=== PATIENT | male | born 1990 | race Caucasian/White ===

== ENCOUNTER 2021-06-17 21:49 | Observation (INO) | payer OTHER ==
[~2021-06-17] VITALS: Ht 167.6 cm; Wt 74.6 kg
[2021-06-18] MEDS ORDERED: NORCO, ANEXSIA 5/325MG TABLET (HYDROcodone/ACETAMINOPHEN) PO ONE (02:20)
[2021-06-18] MEDS ORDERED: MAALOX 30 ML SUSP *UDC PO PRN (02:30)
[2021-06-18] MEDS ORDERED: MOM 30ML SUSPENSION UDC PO PRN (02:30)
[2021-06-18] MEDS ORDERED: ACETAMINOPHEN TAB 650MG DOSE (2X325MG) PO PRN (02:30)
[2021-06-18] MEDS: NS 1,000 ML IV SCH ×3 (02:30→13:08)
[2021-06-18 02:46] LABS: BASO # 0.1 10^3/uL (0.0-0.2); BASO % 1.3 % (0.0-1.0); EOS # 0.1 10^3/uL (0.0-0.5); EOS % 1.5 % (0.0-3.0); HEMATOCRIT 43.7 % (42.0-52.0); HEMOGLOBIN 14.9 g/dl (13.5-17.5); LYMPH # 2.5 10^3/uL (1.5-5.0); LYMPH % 32.3 % (24.0-44.0); MEAN CORPUSCULAR HEMOGLOBIN 31.5 pg (27.0-33.0); MEAN CORPUSCULAR HGB CONC 34.1 g/dl (32.0-36.5); MEAN CORPUSCULAR VOLUME 92.4 fl (80.0-96.0); MONO % 12.9 % (2.0-8.0); PLATELET COUNT, AUTOMATED 244 10^3/uL (150-450); RED BLOOD COUNT 4.73 10^6/uL (4.30-6.10); WHITE BLOOD COUNT 7.8 10^3/uL (4.0-10.0)
[2021-06-18] MEDS ORDERED: HOME MED LIST COMPLETE! XX SCH (02:50)
[2021-06-18] MEDS ORDERED: ceFAZolin SOD 2 GM in IV 1 EA IV ONE (03:00)
[2021-06-18 03:01] LABS: BLOOD UREA NITROGEN 15 MG/DL (7-18); CALCIUM LEVEL 9.4 MG/DL (8.5-10.1); CARBON DIOXIDE LEVEL 28 MEQ/L (21-32); CHLORIDE LEVEL 106 MEQ/L (98-107); CREATININE FOR GFR 1.26 MG/DL (0.70-1.30); GLOMERULAR FILTRATION RATE > 60.0 (>60); GLUCOSE, FASTING 109 MG/DL (70-100); MAGNESIUM LEVEL 2.1 MG/DL (1.8-2.4); POTASSIUM SERUM 4.1 MEQ/L (3.5-5.1); SODIUM LEVEL 142 MEQ/L (136-145)
[2021-06-18 03:31] LABS: RSV AMPLIFICATION NEGATIVE (NEGATIVE)
[2021-06-18] MEDS: oxyCODONE 5MG TAB PO PRN ×2 (04:46→19:40)
[2021-06-18 05:15] VITALS: BP 109/74
[2021-06-18] MEDS ORDERED: KETOROLAC 30 MG/ML 1ML VIAL IV ONE (10:15)
[2021-06-18] MEDS: ceFAZolin SOD 1 GM in D5W MINI-BAG PLUS 50 ML IV SCH ×2 (11:51→19:39)
[2021-06-18 14:00] VITALS: BP 111/82
[2021-06-18] MEDS ORDERED: propofoL 200 MG/20 ML VIAL As Ordered ONE ×2 (15:55→16:22)
[2021-06-18] MEDS ORDERED: MIDAZOLAM INJ 2MG/2ML VIAL (J2250 PER 1MG) As Ordered ONE (15:55)
[2021-06-18] MEDS ORDERED: fentaNYL 100 MCG/2 ML INJECTION As Ordered ONE (15:55)
[2021-06-18] MEDS ORDERED: LIDOCAINE 1% MDV 20ML VIAL As Ordered ONE (16:07)
[2021-06-18] MEDS ORDERED: ceFAZolin 2 GM/D5W 50 ML IV BAG (J0690 PER 500MG) As Ordered ONE (16:07)
[2021-06-18] MEDS ORDERED: BUPIVACAINE HCL 0.5% 10ML VIAL As Ordered ONE (16:07)
[2021-06-18] MEDS ORDERED: LR 1,000 ML IV SCH (17:35)
[2021-06-18] MEDS ORDERED: oxyCODONE 5MG TAB PO PRN (17:35)
[2021-06-18] MEDS ORDERED: fentaNYL 100 MCG/2 ML INJECTION IV PRN (17:35)
[2021-06-18] MEDS ORDERED: ONDANSETRON 4MG/2ML VIAL IV PRN (17:35)
[2021-06-18 18:00] VITALS: BP 109/64
[2021-06-18 18:30] VITALS: BP 112/66
[2021-06-18 20:30] VITALS: BP 113/59
[2021-06-18 21:30] VITALS: BP 102/61
[2021-06-18] MEDS: MORPHINE 4 MG/ML 1ML VIAL/SYRINGE (J2270) IV PRN (23:42)
[2021-06-19 02:00] VITALS: BP 112/67
[2021-06-19] MEDS: ceFAZolin SOD 1 GM in D5W MINI-BAG PLUS 50 ML IV SCH (03:42)
[2021-06-19] MEDS: oxyCODONE 5MG TAB PO PRN ×2 (03:43→07:53)
[2021-06-19 06:00] VITALS: BP 123/76
[2021-06-19] MEDS: MORPHINE 4 MG/ML 1ML VIAL/SYRINGE (J2270) IV PRN (06:36)
[2021-06-19] MEDS ORDERED: OXYC1TAB23 PO ×2 (07:29→09:02)
[2021-06-19] MEDS ORDERED: CEPH500C PO (09:05)
[2021-06-19] MEDS ORDERED: BACITAB PO (09:05)
== END 2021-06-19 09:23 | disposition home or self-care (01) ==
LOC: M ED 21:49 → M ED INP 21:50 → M MS5PR 06-18 04:28
PROVIDERS: ADMIT Family Medicine; ATTEND General Practice
DX: S62.630B Displaced fracture of distal phalanx of right index finger, initial encounter for open fracture (principal); S67.190A Crushing injury of right index finger, initial encounter; W27.8XXA Contact with other nonpowered hand tool, initial encounter; Y92.138 Other place on military base as the place of occurrence of the external cause; Y93.H3 Activity, building and construction; Y99.1 Military activity; F17.210 Nicotine dependence, cigarettes, uncomplicated
CPT/HCPCS: 11760; 26756; 26765; 26776; 73140; 76000; 80048; 83735; 85025; 87631; 96361; 96374; 96375; 96376; 99284; C1713; C1762; J0690; J1885; J2250; J2270; J3010